=== PATIENT | male | born 1975 ===

== ENCOUNTER 2020-07-28 08:40 | Day surgery (SDC) | payer OTHER ==
[~2020-07-28 08:40] MED LIST: PROPOFOL INJ 200 MG/20 ML VIAL IV ONE
[2020-07-28] MEDS ORDERED: PROPOFOL INJ 200 MG/20 ML VIAL IV ONE (11:35)
--- NOTE | 2020-07-28 11:37 | Operative Report ---
Operative Report DATE OF SURGERY: 07/28/20 Operative Report: The risk, benefits and alternatives of the procedure including the risk of bleeding, perforation requiring surgery have been explained to the patient in detail and informed consent has been obtained. Patient is placed in the left, lateral decubital position. Timeout was called. Propofol medication is administered. Rectal examination is done which did not reveal any masses, tears or fissures. An Olympus videoscope was introduced into the patient's rectum. Scope was then carefully advanced all the way to the cecum. The cecum was identified by the usual anatomical landmarks including the ileocecal valve as well as the appendiceal office. Photodocumentation is obtained. Scope was then sequentially pulled back via the various segments of the colon including the ascending colon, hepatic flexure, transverse colon, splenic flexure, descending colon finding to the rectosigmoid portions of the colon. Retroflexion maneuver is performed. PREOPERATIVE DIAGNOSIS: Colorectal cancer screening for family history of colorectal cancer POSTOPERATIVE DIAGNOSIS: Transverse colon polyp removed via snare polypectomy with biopsy forceps. Internal hemorrhoids OPERATION: Colonoscopy with biopsy SURGEON: JOHN SON ANESTHESIA: LMAC TISSUE REMOVED OR ALTERED: As noted above. COMPLICATIONS: None. ESTIMATED BLOOD LOSS: None. INTRAOPERATIVE FINDINGS: As noted above. PROCEDURE: Patient tolerated the procedure well. No immediate postprocedure complications are noted. Patient is discharged in good condition. Discharge date 07/28/2020. Discharge diet: Regular. Discharge activity: Regular. 2 to 3-week follow-up to discuss findings. Patient is instructed to call the office or proceed to the emergency room should there be any further problems or questions. 3 to 5-year surveillance colonoscopy depending on the pathology of the polyp.
[2020-07-28 11:49] VITALS: BP 108/57
== END 2020-07-28 11:47 | disposition home or self-care (01) ==
LOC: END 08:40
PROVIDERS: ATTEND Internal Medicine Gastroenterology
DX: Z12.11 Encounter for screening for malignant neoplasm of colon (principal); D12.3 Benign neoplasm of transverse colon; K64.8 Other hemorrhoids; Z80.0 Family history of malignant neoplasm of digestive organs; Z20.828 Contact with and (suspected) exposure to other viral communicable diseases; Z12.12 Encounter for screening for malignant neoplasm of rectum
CPT/HCPCS: 45380; 88305 ×2; 00812; J2704; 812